=== PATIENT | male | born 1950 | race Caucasian/White ===

== ENCOUNTER 2019-04-17 22:45 | Observation (INO) | payer MEDICARE ==
--- NOTE | 2019-04-17 23:08 | ED ---
HPI Chest Pain - HPI Summary HPI Summary: Patient complains of sudden onset left-sided chest pain while at rest 3 hours ago. Pain described as sharp, progressive. Mild starting at 8 PM, severe 10 PM , currently improved down to 3/10 after nitroglycerin SL 2 with EMS. Patient also received ASA from EMS. Denies radiation of chest pain, diaphoresis, nausea or vomiting, fever, cough, sore throat, SOB, N/3/D, abdominal pain, change in urine, change in BM. History as stated prior calf more than 5 years ago. Patient is poor historian not very specific or informed on his own medical history. Patient was up visiting from [place]. - History of Current Complaint Chief Complaint: EDChestPainROMI Time Seen by Provider: 04/17/19 23:04 Hx Obtained From: Patient, Family/Media Marketing Specialist Onset/Duration: Started Hours Ago Timing: Constant Initial Severity: Mild Current Severity: Mild Pain Intensity: 3 Pain Scale Used: 0-10 Numeric Chest Pain Location: Left Anterior Chest Pain Radiates: No Character: Sharp/Stabbing Aggravating Factor(s): Nothing Alleviating Factor(s): NTG 123 Associated Signs and Symptoms: Positive: Chest Pain - Allergy/Home Medications Allergies/Adverse Reactions: Allergies Allergy/AdvReac Type Severity Reaction Status Date / Time No Known Allergies Allergy Verified 04/18/19 00:27 Home Medications: Home Medications Ibuprofen/Diphenhydramine Cit [Advil Pm Caplet] 1 each PO BEDTIME PRN 04/18/19 [ History Confirmed 04/18/19] Pantoprazole TAB * [Protonix TAB*] 40 mg PO DAILY 04/18/19 [History Confirmed ] Simvastatin 30 mg PO DAILY 04/18/19 [History Confirmed 04/18/19] rOPINIRole TAB* [Requip TAB*] 1 mg PO DAILY 04/18/19 [History Confirmed 04/18/19 ] PMH/Surg Hx/FS Hx/Imm Hx Endocrine/Hematology History: Denies: Hx Anticoagulant Therapy Cardiovascular History: Denies: Hx Pacemaker/ICD History: Denies: Hx Dialysis Sensory History: Denies: Hx Eye Prosthesis Opthamlomology History: Denies: Hx Legally Blind EENT History: Denies: Hx Deafness Neurological History: Denies: Hx Dementia Infectious Disease History: No Infectious Disease History: Denies: Traveled Outside the [place] in Last 30 Days - Family History Known Family History: Positive: Non-Contributory - Social History Alcohol Use: Occasionally Hx Substance Use: No Hx Tobacco Use: No Review of Systems Constitutional: Negative Eyes: Negative ENT: Negative Positive: Chest Pain Respiratory: Negative Gastrointestinal: Negative Genitourinary: Negative Musculoskeletal: Negative Skin: Negative Neurological: Negative Psychological: Normal All Other Systems Reviewed And Are Negative: Yes Physical Exam - Summary Physical Exam Summary: Chest pain somewhat reproducible left-sided chest. No ecchymosis, erythema, deformity, swelling noted. Denies trauma. Triage Information Reviewed: Yes Vital Signs On Initial Exam: Initial Vitals Temp Pulse Resp BP Pulse Ox 98.2 F 61 20 157/82 96 04/17/19 22:49 04/17/19 22:49 04/17/19 22:49 04/17/19 22:49 04/17/19 22:49 Vital Signs Reviewed: Yes Appearance: Positive: Well-Appearing Skin: Positive: Warm Head/Face: Positive: Normal Head/Face Inspection Eyes: Positive: Normal Neck: Positive: Supple Respiratory/Lung Sounds: Positive: Clear to Auscultation Cardiovascular: Positive: Normal Abdomen Description: Positive: Nontender Musculoskeletal: Positive: Normal Neurological: Positive: Normal Psychiatric: Positive: Normal AVPU Assessment: Alert - [place] Coma Scale Best Eye Response: 4 - Spontaneous Best Motor Response: 6 - Obeys Commands Best Verbal Response: 5 - Oriented Coma Scale Total: 15 Procedures - Sedation Patient Received Moderate/Deep Sedation with Procedure: No Diagnostics - Vital Signs Vital Signs Temp Pulse Resp BP Pulse Ox 04/17/19 22:49 98.2 F 61 20 157/82 96 - Laboratory Result Diagrams: 04/18/19 07:35 04/18/19 06:07 Lab Statement: Any lab studies that have been ordered have been reviewed, and results considered in the medical decision making process. Chest Pain Course/Dx - Course Course Of Treatment: Patient complains of sudden onset left-sided chest pain while at rest 3 hours ago. Pain described as sharp, progressive. Mild starting at 8 PM, severe 10 PM, currently improved down to 3/10 after nitroglycerin SL 2 with EMS. Patient also received ASA from EMS. Denies radiation of chest pain, diaphoresis, nausea or vomiting, fever, cough, sore throat, SOB, N/3/D, abdominal pain, change in urine, change in BM. History as stated prior calf more than 5 years ago. Patient is poor historian not very specific or informed on his own medical history. Patient was up visiting from [place], drove up 12 hours yesterday. Vital signs within normal limits. BUN 28. Labs otherwise unremarkable. Serial troponins negative. D-dimer negative. EKG sinus rhythm, heart rate is 61, T wave inversion in V1, V4 through V6. No prior EKGs on file. Poor medical history. History of cardiac catheter. Patient chest pain uncontrolled after morphine and Dilaudid. Heartscore 8. Admitted to hospitalist for further evaluation. - Diagnoses Provider Diagnoses: Chest pain Discharge ED - Sign-Out/Discharge Documenting (check all that apply): Patient Departure - Discharge Plan Condition: Stable Disposition: ADMITTED TO [facility] - Billing Disposition and Condition Condition: STABLE Disposition: Admitted to [facility]
[2019-04-17 23:32] LABS: Hematocrit 39 % (42-52); Hemoglobin 13.2 g/dL (14.0-18.0); Mean Corpuscular HGB Conc 34 g/dL (31-36); Mean Corpuscular Hemoglobin 30 pg (27-31); Mean Corpuscular Volume 87 fL (80-94); Mean Platelet Volume 8.1 fL (7.4-10.4); Platelet Count 138 10^3/uL (150-450); Red Blood Count 4.49 10^6 /uL (4.18-5.48); Red Cell Distribution Width 14 % (10-15); White Blood Count 8.1 10^3/uL (3.5-10.8)
[2019-04-17 23:39] LABS: INR 0.98 (0.82-1.09)
[2019-04-17 23:50] LABS: ALT 31 U/L (7-52); AST 21 U/L (13-39); Albumin/Globulin Ratio 1.7 (1-3); Alkaline Phosphatase 77 U/L (34-104); Anion Gap 7 mmol/L (2-11); BUN/Creatinine Ratio 28.9 (8-20); Blood Urea Nitrogen 28 mg/dL (6-24); C Reactive Protein < 1.00 mg/L (<8.01); CO2 Carbon Dioxide 25 mmol/L (22-32); Calcium 8.9 mg/dL (8.6-10.3); Chloride 108 mmol/L (101-111); EGFR African American 92.9 (>60); EGFR Non-African American 76.7 (>60); Globulin 2.3 g/dL (2-4); Glucose 127 mg/dL (70-100); Magnesium 2.1 mg/dL (1.9-2.7); Potassium 3.8 mmol/L (3.5-5.0); Sodium 140 mmol/L (135-145); Total Protein 6.3 g/dL (6.4-8.9)
[2019-04-17 23:52] LABS: Troponin I 0.01 ng/mL (<0.03)
[2019-04-17 23:53] LABS: ABS Eosinophils 0.4 10^3/ul (0-0.6); ABS Lymphocytes 4.2 10^3/ul (1.0-4.8); ABS Monocytes 0.6 10^3/ul (0-0.8); ABS Neutrophils 2.8 10^3/ul (1.5-7.7); Eosinophil % 4.7 %; Lymphocyte % 52.3 %; Nucleated Red Blood Cells % 0.1
[2019-04-18] MEDS ORDERED: Morphine 4 MG/ML VIAL (1 ml) 4 MG/ML VIAL IV ONE ×2 (00:04→03:11)
[2019-04-18] MEDS ORDERED: Ondansetron INJ* 2 MG/ML VIAL IV ONE (00:04)
[2019-04-18 00:09] LABS: TSH (Thyroid Stimulating Horm) 4.41 mcIU/mL (0.34-5.60)
[2019-04-18] MEDS ORDERED: HYDROmorphone INJ* 0.5 MG/0.5 ML SYRINGE IV ONE (02:17)
[2019-04-18] MEDS ORDERED: Nitroglycerin TAB 0.4 MG* 0.4 MG TAB SL ONE (03:06)
[2019-04-18] MEDS ORDERED: Aspirin TAB* 325 MG PO ONE (04:41)
[2019-04-18] MEDS ORDERED: Nitro 2% OINT* (Nitroglycerin) 1 INCH/PAK PAK TOPICAL ONE (04:41)
[2019-04-18] MEDS ORDERED: Atorvastatin* 80 MG TAB PO ONE (04:41)
[2019-04-18] MEDS ORDERED: Heparin DRIP 25,000 UNITS(*) 25,000 UNITS/500 ML BAG IV SCH (04:45)
[2019-04-18] MEDS ORDERED: Metoprolol Tartrate IV* 1 MG/ML 5 ML VIAL IV ONE (04:48)
[2019-04-18] MEDS ORDERED: Aspirin 81 mg CHEW TAB* 81 MG TAB.CHEW ONE (04:53)
[2019-04-18] MEDS ORDERED: Heparin VIAL(*) 5000 UNITS/ML VIAL (FIVE THOUSAND) IV SCH (05:00)
[2019-04-18] MEDS ORDERED: Iohexol 350* (CONTRAST) 500 ML MDV IV ONE (05:24)
[2019-04-18] MEDS: Metoprolol Tartrate TAB* 25 MG PO SCH ×2 (06:16→13:12)
[2019-04-18] MEDS: Lidocaine PATCH 5%* 1 PATCH TRANSDERM SCH ×2 (06:20→13:11)
[2019-04-18 06:39] LABS: Troponin I 0.01 ng/mL (<0.03)
[2019-04-18 07:52] LABS: ABS Eosinophils 0.1 10^3/ul (0-0.6); ABS Lymphocytes 2.7 10^3/ul (1.0-4.8); ABS Monocytes 0.3 10^3/ul (0-0.8); ABS Neutrophils 6.3 10^3/ul (1.5-7.7); Eosinophil % 0.8 %; Hematocrit 40 % (42-52); Hemoglobin 13.6 g/dL (14.0-18.0); Lymphocyte % 29.1 %; Mean Corpuscular HGB Conc 34 g/dL (31-36); Mean Corpuscular Hemoglobin 30 pg (27-31); Mean Corpuscular Volume 87 fL (80-94); Mean Platelet Volume 8.7 fL (7.4-10.4); Nucleated Red Blood Cells % 0.1; Platelet Count 139 10^3/uL (150-450); Red Blood Count 4.55 10^6 /uL (4.18-5.48); Red Cell Distribution Width 14 % (10-15); White Blood Count 9.4 10^3/uL (3.5-10.8)
[2019-04-18] MEDS ORDERED: Al Hydrox/Mg Hydrox/Simet LIQ* 30 ML UDC PO ONE (08:06)
[2019-04-18 08:47] LABS: EGFR African American 88.6 (>60); EGFR Non-African American 73.2 (>60)
[2019-04-18] MEDS ORDERED: Aspirin 81 mg CHEW TAB* 81 MG TAB.CHEW PO SCH (09:00)
[2019-04-18] MEDS ORDERED: rOPINIRole TAB* 1 MG PO SCH (09:00)
[2019-04-18] MEDS ORDERED: Pantoprazole TAB * 40 MG TAB PO SCH (09:00)
--- NOTE | 2019-04-18 10:27 | ECHO ---
*[facility]* [place] [address] Fax #: [phone] Transthoracic Echocardiogram Patient: Saniya Boyce : 1950 Study Date: 04/18/2019 Age: 68 Gender: M HR: 63 bpm Height: 69 in /175.3 cm BSA: 1.9 m^2 Weight: 163.7 lb /74.4 kg BMI: 24.2 kg/m^2 *Joint Runner: * Kathryn Barnes [facility] *Referring Physician: * Samuel Aranda *Reading Physician: * Dharmesh Dougherty MD Indications: Chest Pain, unspecified. History: No known cardiac history. Conclusions Summary: - Left ventricle: The cavity size is normal. Wall thickness is normal. Systolic function is normal. The estimated ejection fraction is 55-60%. Wall motion is normal; there are no regional wall motion abnormalities. - Right ventricle: The cavity size is normal. Systolic function is normal. Systolic pressure is within the normal range. - Left atrium: The atrium is mildly dilated. - No significant valvular abnormalities noted. Recommendations: None prior for comparison at time of interpretation Study data: Transthoracic echocardiogram. Procedure: Transthoracic echocardiography was performed. Image quality was good. Complete 2D, spectral Doppler, and color flow Doppler. Location: Bedside. Patient status: Inpatient. Patient room number: 444-02. Rhythm: Normal sinus rhythm. Findings Left ventricle: The cavity size is normal. Wall thickness is normal. Systolic function is normal. The estimated ejection fraction is 55-60%. Wall motion is normal; there are no regional wall motion abnormalities. Doppler parameters are consistent with abnormal left ventricular relaxation (grade 1 diastolic dysfunction). Right ventricle: The cavity size is normal. Systolic function is normal. Systolic pressure is within the normal range. Left atrium: The atrium is mildly dilated. Right atrium: The atrium is mildly dilated. Mitral valve: The leaflets are mildly thickened. There is no evidence of stenosis. There is trace regurgitation. Aortic valve: The valve is trileaflet. The leaflets are mildly thickened. There is no evidence of stenosis. There is no significant regurgitation. Tricuspid valve: The leaflets are normal thickness. There is no evidence of stenosis. There is trace to mild regurgitation. Pulmonic valve: The leaflets are normal thickness. There is no evidence of stenosis. There is trace regurgitation. Aorta: Aortic root: The aortic root is appears normal. Ascending aorta: The ascending aorta is appears normal. Aortic arch: The aortic arch is poorly visualized. Pericardium: There is no significant pericardial effusion. Pulmonary arteries: The main pulmonary artery is normal-sized. Systolic pressure is within the normal range. Systemic veins: Inferior vena cava: The vessel is normal in size. There is (>= 50%) respiratory change in the IVC dimension. Measurements Left ventricle Value Ref Right atrium continued Value Ref SHANON, LAX 5.3 cm 4.2 - 5.8 SI dim, ES, A4C (H) 5.5 cm 3.4 - 5.3 ESD, LAX 4.0 cm 2.5 - 4.0 Estimated RAP 3 mm Hg --------- FS, LAX 26 % 43 PW, ED, LAX 1.0 cm 0.6 - 1.0 Aortic valve Value Ref FS 26 % 43 Torrey diam, ED 2.2 cm --------- PW, ED 1.0 cm 0.6 - 1.0 Peak v, S 1.17 m/sec --------- E', lat torrey, TDI (L) 4.7 cm/sec >=10.0 VTI, S 22.6 cm -- ------- E/e', lat torrey, 12 Mean grad, S 2.0 mm Hg ----- ---- TDI Peak grad, S 5.0 mm Hg --------- E', med torrey, TDI (L) 4.2 cm/sec >=7.0 LVOT/AV, VTI ratio 0.71 -- ------- E/e', med torrey, 14 TDI Mitral valve Value Ref E', avg, TDI 4.5 cm/sec Peak E 0.58 m/sec ----- ---- E/e', avg, TDI 13 <=14 Peak A 0.92 m/sec -- ------- Decel time 180 ms --------- LVOT Value Ref Peak E/A ratio 0.6 --------- Peak joni, S 0.78 m/sec VTI, S 16.0 cm Pulmonic valve Value Ref Mean grad, S 1 mm Hg Peak v, S 0.94 m/sec --------- Peak grad, S 4.0 mm Hg --------- Ventricular septum Value Ref IVS, ED 1.0 cm 0.6 - 1.0 Tricuspid valve Value Ref TR peak v 2.3 m/sec <=2.8 Right ventricle Value Ref Peak RV-RA grad, S 21 mm Hg --------- SHANON, LAX 3.2 cm SHANON minor ax, A4C (H) 4.3 cm 1.9 - 3.5 Aortic root Value Ref mid Root diam 3.4 cm <4.1 Pressure, S 24 mm Hg Ascending aorta Value Ref Left atrium Value Ref AAo AP diam, S 3.3 cm --------- AP dim, ES 3.80 cm 3.00 - 4.00 Pulmonary artery Value Ref ML dim, A4C 4.5 cm Pressure, S 20.0 mm Hg --------- SI dim, A4C 5.5 cm Vol/bsa, ES, 1-p 36 ml/m^2 12 - 37 Inferior vena cava Value Ref A4C Diam 1.4 cm --------- Vol/bsa, ES, A/L (H) 36 ml/m^2 16 - 34 Right atrium Value Ref SI dim, ES (H) 5.5 cm 3.4 - 5.3 ML dim, ES, A4C 4.4 cm 2.6 - 4.4 Legend: (L) and (H) quinton values outside specified reference range. Prepared and electronically signed by Dharmesh Dougherty MD 04/18/2019 10:27
[2019-04-18] MEDS ORDERED: Regadenoson* 0.4 MG/5 ML SYRINGE ONE (11:02)
--- NOTE | 2019-04-18 12:04 | HP ---
HISTORY AND PHYSICAL: DATE OF ADMISSION: 04/18/19 ADMITTING PROVIDER: Samuel Aranda MD. PRIMARY CARE PROVIDER: Currently has none. Formerly had been Dr. Garrett in [place], but they decided to part ways with him over a year ago. CHIEF COMPLAINT: Chest pain of sudden onset. HISTORY OF PRESENT ILLNESS: Saniya Boyce is a 68-year-old male with past medical history of presumably hypertension, hyperlipidemia, GERD, restless legs syndrome, and formerly had been on chronic opioids for back pain for 15 years but has stopped a few years ago. He has also likely severe spinal stenosis, which causes some gait disturbances and occasional falls. He is a poor historian, but it is exacerbated by his chest discomfort. When I see him, he is grabbing his chest continuously and complaining of severe focal pain in his left chest. He notably drove with his brother from [place] over the course of 24 straight hours on 04/15/19 into the afternoon of 04/16/19. They did take some stops along the way. The day prior to admission he had developed severe chest pain while he was sitting on his couch. He got 4 tablets of aspirin and 2 nitroglycerin with EMS and had some relief of his symptoms. His first troponins were negative at 0.01 and 0.01. His EKG demonstrated diffuse T-wave inversions in V4 through V6, leads 2, 3, and aVF. No prior baseline for comparison. Notably his blood pressure when I was in the room was 194/83, when he was clutching his chest in pain. His chest x-ray demonstrated no acute findings. He had been given morphine 4 mg IV at 0028 and 0.5 mg of Dilaudid at 2:22 a.m., which he says absolutely did not touch his pain at all. He was referred to the hospitalist service for ACS rule out. Again, it is somewhat difficult to get a clear history from him as he is in such extremis at the moment. He states that he had a catheterization about 5 years ago for "an irregular heart beat" and "an enlarged heart." He denied any stents. His sister thinks he was on anticoagulation. He states he has been off of it for at least 1 year. He does not recognize the term atrial fibrillation. PAST MEDICAL HISTORY: Presumably, 1. Hypertension. 2. Hyperlipidemia. 3. Restless leg syndrome. 4. GERD. MEDICATIONS: Home medications include: 1. Ropinirole 1 mg p.o. daily. 2. Simvastatin 30 mg p.o. daily. 3. Protonix 40 mg p.o. daily. 4. Metoprolol tartrate 25 mg p.o. b.i.d. 5. Mobic 15 mg p.o. daily. 7. Ibuprofen/diphenhydramine (Advil PM p.o. bedtime p.r.n.). Of note, he states that he takes Tylenol PM instead of Advil PM. ALLERGIES: No known drug allergies. FAMILY MEDICAL HISTORY: His father at age 29 in a car crash. His mother at age 90 with CHF. SOCIAL HISTORY: The patient is a former smoker, quit in 1974 after 9 years at 1 pack per day. Former alcohol abuse, quit 1982 after 15 years of heavy drinking. He works in [employer]. His medical surrogate is his sister Consuelo while his is currently in [place]. REVIEW OF SYSTEMS: Complete 14-point review of systems negative except as per HPI, although limited by his extreme chest pain at the moment. He denies specifically any radiation to the back, jaws, arms, neck. Mostly stays very focally in the left chest. He does complain of some shortness of breath. PHYSICAL EXAMINATION GENERAL APPEARANCE: Currently in extreme chest pain. VITAL SIGNS: Temperature 98.2, heart rate 70, respiratory rate 11 to 20, satting 92% to 97% on room air, blood pressure initially 157/82 peaked and currently at 104/83. HEENT: Normocephalic, atraumatic. Pupils equal, round, and reactive to light. Extraocular motions intact. No scleral icterus. LUNGS: Clear to auscultation bilaterally with no wheezing, rales, or rhonchi. CARDIOVASCULAR: Regular rate and rhythm. No murmurs, rubs, or gallops ABDOMEN: Soft, nontender, nondistended. EXTREMITIES: Warm and well perfused. No peripheral edema. NEUROLOGIC: Cranial nerve II through XII intact. Wire Temperer strength intact. Moving all extremities. SKIN: No lesions or rashes. LABORATORY DATA: White count 8.1, hemoglobin 13.2, hematocrit 39, platelets 138 , INR 0.98. D-dimer less than 200. Sodium 140, potassium 3.8, chloride 108, carbon dioxide 25, BUN 28, creatinine 0.97, glucose 127, calcium 8.9, magnesium 2.1, total bili 0.4, AST 21, ALT 31, alk phos 77, troponin 0.01 and 0.01. Repeated BNP 42, albumin 4.0, lipase 61, TSH 4.41. IMAGING: Chest x-ray, no acute cardiopulmonary process. CTA of the chest, pending. EKG, as above with normal sinus rhythm with T-wave inversions in V1 through V6 and 2, 3, and aVF; Q in V1. Left axis deviation. Interventricular conduction delay with QRS at 124, AL interval at 173. No ST elevations or depressions. ASSESSMENT AND PLAN: Saniya Boyce is a 68-year-old male with past medical history of hypertension, hyperlipidemia, gastroesophageal reflux disease, restless legs, presenting with severe acute chest pain 1 day after traveling about 24 hours in a car from [place]. He did get some relief with nitroglycerin and aspirin with EMS. His first 2 troponins have been negative. He is currently extremely hypertensive 194/83 and that is likely contributing to some of his discomfort. His chest x-ray was within normal limits and EKG does show some T-wave inversions inferiorly and anterolaterally. I will continue to trend the troponins. I am adding on beta blockade with metoprolol tartrate 25 mg p.o. q.6 hours and Lopressor 5 mg IV push now, added Lipitor 80 mg once now and daily, aspirin 81 mg daily. Of note, he got some in the emergency room and did not get a repeat of the 324 here, and because of his severe chest discomfort, I am starting a heparin drip and nitroglycerin paste, get an echocardiogram and possible stress test, consider cardiology consult in the morning. His pain is somewhat atypical, very focalized within few fingerbreadths. Because of his extreme pain and negative troponins, I am going to rule out aortic dissection, albeit without any radiation to the back, and the CTA chest was ordered (addendum has since returned negative for aortic dissection or aneurysm, but with some alveolar opacities in lower lungs probably suggesting pneumonia). Of note, his CRP is negative. He has no leukocytosis, fevers, tachycardia, or other systemic inflammatory response syndrome. Depending on clinical course, as I said consider a stress test and we will follow up with echocardiogram. Otherwise, consider for other etiologies of chest pain. I will add a GI cocktail as well. Of note, opioid medications did not touch his chest pain at all. Of note, he is a full code. Medical surrogate is his sister Consuelo. [id number]/[facility] #: [id number] [facility]
--- NOTE | 2019-04-18 13:40 | CONSULT ---
Subjective Date of Service: 04/18/19 Interval History: Admission Date: 04/18/19 consult date 04/18/2019 Service: Hospitalist CC: Chest pain Reason for consult: Chest pain HISTORY OF PRESENT ILLNESS: Saniya Boyce is a 68-year-old man with a PMhx as below. He recently drove from [place] nearly straight alternating driving with his brother. He described the [facility] as uncomfortable to ride in unable to find a comfortable position on ride. He developed sudden left focal chest pain last night while on the couch. It persisted very severe now mild until now. He had serially normal troponins in the setting of unrelenting chest pain. On exam the pain is very focal and reproducible on left anterior costal region. PAST MEDICAL HISTORY: 1. Hypertension. 2. Hyperlipidemia. 3. Restless leg syndrome. 4. GERD. 5. Patient states had LVEF of "20%" about 5 years ago had cardiac catheterization R groin no artery problem and 1 year later with medications had returned to normal. 6. Had been on chronic narcotics in past for back pain now discontinued ALLERGIES: No known drug allergies. FAMILY MEDICAL HISTORY: His father at age 29 in a car crash. His mother at age 90 with CHF. SOCIAL HISTORY: The patient is a former smoker, quit in 1974 after 9 years at 1 pack per day. Former alcohol abuse, quit 1982. 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 His medical surrogate is his sister Consuelo while his is currently in [place]. Medications Active Medications: Aspirin (Aspirin 81 Mg Chew Tab*) 81 mg PO DAILY [facility] Last Admin: 04/18/19 13:11 Dose: 81 mg Atorvastatin Calcium (Lipitor*) 80 mg PO 1700 [facility] Heparin Sodium (Porcine) (Heparin Vial(*)) 0 units IV .PER PROTOCOL [facility] Last Admin: 04/18/19 07:47 Dose: 4,000 units Heparin Sodium/Dextrose (Heparin Drip 25,000 Units(*)) 25,000 units in 500 mls @ 0 mls/hr IV PER RATE [facility]; Protocol Last Admin: 04/18/19 07:41 Dose: 18 mls/hr Lidocaine (Lidoderm 5% Patch*) 1 patch TRANSDERM DAILY [facility] Last Admin: 04/18/19 13:11 Dose: 1 patch Metoprolol Tartrate (Lopressor Tab*) 25 mg PO Q6H [facility] Last Admin: 04/18/19 13:12 Dose: 25 mg Pantoprazole Sodium (Protonix Tab*) 40 mg PO DAILY [facility] Last Admin: 04/18/19 13:11 Dose: 40 mg Pharmacy Profile Note (Lidocaine Patch Remove*) 1 note N/A 2100 [facility] Ropinirole HCl (Requip Tab*) 1 mg PO DAILY [facility] Last Admin: 04/18/19 13:11 Dose: 1 mg Home Medications: Ibuprofen/Diphenhydramine Cit [Advil Pm Caplet] 1 each PO BEDTIME PRN 04/18/19 [ History Confirmed 04/18/19] Meloxicam [Mobic] 15 mg PO DAILY 04/18/19 [History Confirmed 04/18/19] Metoprolol Tartrate TAB* [Lopressor TAB*] 25 mg PO BID 04/18/19 [History Confirmed 04/18/19] Pantoprazole TAB * [Protonix TAB*] 40 mg PO DAILY 04/18/19 [History Confirmed ] Simvastatin 30 mg PO DAILY 04/18/19 [History Confirmed 04/18/19] rOPINIRole TAB* [Requip TAB*] 1 mg PO DAILY 04/18/19 [History Confirmed 04/18/19 ] Review of Systems - Measurements Intake and Output: Intake and Output Last 24 Hours 04/16/19 04/17/19 04/18/19 04/19/19 06:59 06:59 06:59 06:59 Intake Total 0 0 Output Total 0 Balance 0 0 Weight 164 lb 170 lb Intake: Heparin 0 Oral 0 Output: Urine 0 - Review of Systems Constitutional Symptoms: Negative: Weight Gain, Weight Loss, Fatigue, Fever Dermatology: Negative: Rash, Skin Lesions HEENT: Negative: Change in Hearing, Vertigo Eyes: Negative: Change in Vision, Double Vision Thyroid: Negative: Cold Intolerance, Heat Intolerance, Palpitations Pulmonary: Negative: Cough, Sputum, Hemoptysis, Wheezing, Respiratory Distress, Shortness of Breath, COPD Cardiology: Positive: Chest Pain Negative: Palpitations, Swelling of Ankles, Peripheral Vascular Dis, Edema, Faintness, Syncope, Claudication, Paroxysmal Nocturnal Dyspnea, Orthopnea Gastroenterology: Negative: Blood in Stools, Haematemesis, Melena Genital - Urinary: Negative: Dysuria, Hematuria, Nocturia Musculoskeletal: Negative: Joint Deformities, Kyphoscoliosis Endocrinology: Negative: Polydipsia, Polyuria Hematologic/Lymphatic: Negative: Use of Anticoagulant, Use of Antiplatelet Drugs Neurology: Negative: Hx of Stroke\\TIA, Hx Seizures Psychiatry: Negative: Unusual Anxiety, Suicidal Ideation Allergic/Immunologic: Negative: Hx HIV, Immunocompromise Review of Systems Statement: All other review of systems negative, unless stated above. Objective Vital Signs: Temp Pulse Resp BP Pulse Ox 98 F 67 20 125/52 97 04/18/19 12:20 04/18/19 12:20 04/18/19 12:20 04/18/19 12:20 04/18/19 12:20 Oxygen Devices in Use Now: None Appearance: nad, pleasant Ears/Nose/Mouth/Throat: Clear Oropharnyx Neck: NL Appearance and Movements; NL JVP, Trachea Midline Respiratory: Symmetrical Chest Expansion and Respiratory Effort, Clear to Auscultation Cardiovascular: NL Sounds; No Murmurs; No JVD, RRR, No Edema Abdominal: NL Sounds; No Tenderness; No Distention Extremities: No Edema Skin: No Rash or Ulcers Neurological: Alert and Oriented x 3 Laboratory Results: 04/18/19 07:35 04/18/19 06:07 INR (Anticoag Therapy) 0.98 (0.82-1.09) 04/17/19 23: APTT 30.6 seconds (26.0-38.0) 04/18/19 07:35 Total Bilirubin 0.40 mg/dL (0.2-1.0) 04/17/19 23:27 AST 21 U/L (13-39) 04/17/19 23:27 ALT 31 U/L (7-52) 04/17/19 23:27 Alkaline Phosphatase 77 U/L (34-104) 04/17/19 23:27 B-Natriuretic Peptide 42 pg/mL (<=100) 04/17/19 23:27 Total Protein 6.3 g/dL (6.4-8.9) L 04/17/19 23:27 Albumin 4.0 g/dL (3.2-5.2) 04/17/19 23:27 Globulin 2.3 g/dL (2-4) 04/17/19 23:27 Albumin/Globulin Ratio 1.7 (1-3) 04/17/19 23: TSH 4.41 mcIU/mL (0.34-5.60) 04/17/19 23:27 04/17/19 04/18/19 04/18/19 23:27 03:00 06:07 Troponin I 0.01 0.01 0.01 Diagnostic Imaging: Transthoracic Echocardiogram Study Date: 04/18/2019 Summary: - Left ventricle: The cavity size is normal. Wall thickness is normal. Systolic function is normal. The estimated ejection fraction is 55-60%. Wall motion is normal; there are no regional wall motion abnormalities. - Right ventricle: The cavity size is normal. Systolic function is normal. Systolic pressure is within the normal range. - Left atrium: The atrium is mildly dilated. - No significant valvular abnormalities noted. stress MPI vasodilator 04/18/2019 reviewed and my interpretation: - inferior wall defect fixed that corrects on AC with normal wall motion consistent with attenuation artifact. EKG Data: ekg on admission: NSR, LAFB with anterolateral T wave inversions, no dynamic changes on repeat Assessment/Plan Patients presentation is most consistent with costochondritis. Continuous chest discomfort without interruption in the setting of serially normal troponins essentially excludes myocardial ischemia as a cause of his symptom. Would treat pain symptomatically and try to minimize NSAID use to the extent possible.
[2019-04-18 15:33] VITALS: BP 140/52
[2019-04-18] MEDS ORDERED: Atorvastatin* 80 MG TAB PO SCH (17:00)
--- NOTE | 2019-04-18 17:50 | DS ---
Resident Discharge Summary Discharge Summary: Date of Admission: 04/18/19 Date of Discharge: 04/18/19 Admitting MD: Samuel Aranda MD Attending MD: Zack Barger MD Primary Care Physician: Patient Does Not Have PCP Home Medications Medication Instructions Recorded Confirmed Type Ibuprofen/Diphenhydramine Cit 1 each PO BEDTIME PRN 04/18/19 04/18/19 History [Advil Pm Caplet] Lidocaine 4% GEL* [Topicaine 4% 1 applic TOPICAL SEE INSTRUCTIONS 04/18/19 Rx GEL*] #1 tube Lisinopril [Zestril 2.5 MG-] 2.5 mg PO DAILY #30 tab 04/18/19 Rx Meloxicam [Mobic] 15 mg PO BID PRN #30 tablet 04/18/19 Rx Pantoprazole TAB * [Protonix TAB*] 40 mg PO DAILY 04/18/19 04/18/19 History Simvastatin 30 mg PO DAILY 04/18/19 04/18/19 History rOPINIRole TAB* [Requip TAB*] 1 mg PO DAILY 04/18/19 04/18/19 History Disposition: Home Condition: Stable to Home Primary Diagnosis: 1. Noncardiac chest pain Secondary Diagnosis: 1. Hypertension. 2. Hyperlipidemia 3. Restless leg syndrome 4. GERD 5. Impaired fasting glucose Diagnostic Imaging: CTA 04/18/19: no aortic dissection, mild alvelar opacitis in the lower lungs bilaterally. CXR 04/18/19: no acute findings Nuclear stress test 04/18/19: initially reported by radiologist as small to moderate size area of ischemia in the inferoseptal wall. Echocardiogram 04/18/2019: EF 55-60%, wall motion normal, no valvular abnormalities seen. Pertinent Laboratory Results: On admission tests CBC:TW 8.1, HB 13.2, Plt 138 BMP: Na 140, K 3.8, bicarb 25, creatinine 0.97, glucose 127 trop negative for 3 sets D-dimer neg BNP neg TSH normal Hospital Course: Saniya Boyce is a 68 y/o male with history of presumably hypertension, hyperlipidemia, GERD, restless legs, presented to [facility] for acute onset of chest after a [address] from [place]. He described it stabbing pain on left side chest, constant, not related to exertion, no SOB, palpitation related , lasting for hours before it went away. Please refer to H&P for further details about history. He had three tests of negative troponin, EKG demonstrated diffuse T wave inversion in V4-6, II, III, aVF, but no dynamic changes seen. His chest pain was not responsive to nitroglycerin and loading dose of aspirin, he had temporary relief after giving morphine. In view of his high BP and persistent chest pain, CTA was performed with no dissection found. He had a normal echocardiogram and stress test (Of note, his stress test was reported to be positive, however after consulting endoscopy technican Dr. Dougherty, it was interpreted as attenuation artifact ) As mentioned above, cardiology consult was obtained in this case in view of positive stress report, his impression is that of costochondritis. NSAID and lidocaine gel was given for his noncardiac chest pain. During the hospitalization, patient was bradycardic in quality assurance monitor final with HR 40 on resting. This is likely due to metoprolol use presumptively for his hypertension. I stopped his metoprolol and changed to lisinopril low dose instead. I instructed him to follow up his BP closely and get a primary care to continue follow up his cardiac risk factor. He doesn't have a PCP at this moment , but stated he would find one to follow up. Follow Up Instructions: Get a primary care to follow up BP, possible pre-diabetes, and hyperlipidemia. In case of an emergency or after clinic hours, please go to your nearest Emergency Department. You may also call the [facility] manufacturing machine operator at .
[2019-04-18] MEDS ORDERED: Lidocaine Patch REMOVE* 1 NOTE MISC SCH (21:00)
== END 2019-04-18 16:30 | disposition home or self-care (01) ==
LOC: ED 22:45 → MEDTELE 04-18 03:42
PROVIDERS: ADMIT Internal Medicine; ATTEND Internal Medicine
DX: R07.89 Other chest pain (principal); I10 Essential (primary) hypertension; E78.5 Hyperlipidemia, unspecified; G25.81 Restless legs syndrome; K21.9 Gastro-esophageal reflux disease without esophagitis; R73.01 Impaired fasting glucose; Z79.899 Other long term (current) drug therapy; Z87.891 Personal history of nicotine dependence; R94.31 Abnormal electrocardiogram [ECG] [EKG]; Z79.82 Long term (current) use of aspirin
CPT/HCPCS: 36415; 71045; 71275; 78452; 80053; 82565; 83690; 83735; 83880; 84443; 84484; 84520; 85025; 85379; 85610; 85730; 86140; 93005; 93017; 93306; 96372; 96374; 96375; 99284; A9270-GY; A9502; G0378; J1170; J1644; J2270; J2405; J2785; J3490; Q9967